=== PATIENT | female | born 1995 | race Caucasian/White ===

== ENCOUNTER → 2017-06-20 | Outpatient (REF) | payer OTHER | LOC: M SFHCWAGY 10:31 | PROVIDERS: ATTEND Nurse Practitioner Women's Health | DX: Z12.4 Encounter for screening for malignant neoplasm of cervix (principal) ==

== ENCOUNTER → 2018-07-15 | Outpatient (REF) | payer OTHER ==
[2018-07-15 20:03] LABS: HEMATOCRIT 44.5 % (36.0-47.0); HEMOGLOBIN 14.1 g/dl (12.0-15.5); MEAN CORPUSCULAR HEMOGLOBIN 28.4 pg (27.0-33.0); MEAN CORPUSCULAR HGB CONC 31.7 g/dl (32.0-36.5); MEAN CORPUSCULAR VOLUME 89.7 fl (80.0-96.0); PLATELET COUNT, AUTOMATED 334 10^3/uL (150-450); RED BLOOD COUNT 4.96 10^6/uL (4.00-5.40); RED CELL DISTRIBUTION WIDTH 12.5 % (11.5-14.5); WHITE BLOOD COUNT 8.5 10^3/uL (4.0-10.0)
[2018-07-15 20:43] LABS: ALBUMIN/GLOBULIN RATIO 1.05 (1.00-1.93); ALKALINE PHOSPHATASE 69 U/L (45-117); ALT/SGPT 23 U/L (12-78); ANION GAP 9 MEQ/L (8-16); AST/SGOT 15 U/L (7-37); BILIRUBIN,TOTAL 0.2 MG/DL (0.2-1.0); BLOOD UREA NITROGEN 9 MG/DL (7-18); CALCIUM LEVEL 10.2 MG/DL (8.5-10.1); CARBON DIOXIDE LEVEL 26 MEQ/L (21-32); CHLORIDE LEVEL 106 MEQ/L (98-107); CREATININE FOR GFR 0.78 MG/DL (0.55-1.30); FREE T4 1.08 NG/DL (0.76-1.46); GLOMERULAR FILTRATION RATE > 60.0 (>60); GLUCOSE, FASTING 87 MG/DL (70-100); POTASSIUM SERUM 4.5 MEQ/L (3.5-5.1); SODIUM LEVEL 141 MEQ/L (136-145); TOTAL PROTEIN 7.8 GM/DL (6.4-8.2)
== END ==
LOC: M SFHCADAM 14:51
DX: R00.2 Palpitations (principal)

== ENCOUNTER → 2020-02-08 | Outpatient (REF) | payer OTHER ==
[2020-02-08 13:41] LABS: FREE T4 1.02 NG/DL (0.76-1.46); THYROID STIMULATING HORMONE 2.02 uIU/ML (0.358-3.740)
[2020-02-08 13:42] LABS: ESTRADIOL 63.5 PG/ML; FOLLICLE STIMULATING HORMONE 3.1 mIU/mL; LUTEINIZING HORMONE 2.6 mIU/mL; PROLACTIN 10.1 NG/ML
== END ==
LOC: M PLALAB 11:07
PROVIDERS: ATTEND Nurse Practitioner Women's Health
DX: Z31.9 Encounter for procreative management, unspecified (principal)

== ENCOUNTER → 2020-02-08 | Outpatient (CLI) | payer OTHER ==
--- NOTE | 2020-02-08 13:22 | REP ---
PELVIC ULTRASOUND: Transabdominal pelvic ultrasound performed. Bladder measures 10.5 x 6.1 cm. Uterus measures 9.5 x 4.3 x 5.5 cm. Endometrial thickness is 16 mm. There is no endometrial fluid collection. Right ovary measures 4.9 x 2.6 x 2.8 cm and left ovary 3.3 x 1.8 x 2.7 cm. There is a cystic structure with low level echoes in the right ovary compatible with a dominant follicle 2.4 x 1.8 x 1.5 cm. Small paraovarian cystic structure is seen on the left measuring 1.6 x 1.2 x 1.0 cm. There is blood flow seen in each ovary with duplex Doppler evaluation, with no torsion. Trace physiologic amount of free fluid is seen in the cul-de-sac. IMPRESSION: Endometrial thickness of 16 mm is likely due to the patient's phase of menstruation. Dominant follicle right ovary 2.4 cm in maximum diameter. Small paraovarian cystic structure on the left measures 1.6 cm maximally.
== END ==
LOC: M WHC 09:49
PROVIDERS: ATTEND Nurse Practitioner Women's Health
DX: Z31.9 Encounter for procreative management, unspecified (principal)

== ENCOUNTER → 2020-04-04 | Outpatient (REF) | payer OTHER | LOC: M LAB REF 12:39 | PROVIDERS: ATTEND Physician Assistant | DX: N39.0 Urinary tract infection, site not specified (principal) ==

== ENCOUNTER → 2020-04-27 | Outpatient (CLI) | payer OTHER ==
--- NOTE | 2020-04-27 16:52 | REP ---
History: Infertility The procedure was performed by ROBERTO Hernandez, under the direct supervision of Dr. Lopez. The images were reviewed with Dr. Lopez. The patient was referred for a hysterosalpingogram. The referring clinician catheterize the cervix and injected contrast while I obtained fluoroscopic images. The uterine cavity opacifies well and appears normal in configuration with no definite contour abnormalities or filling defect. There is free passage of contrast material through both non dilated fallopian tubes, and there appears to be free intraperitoneal spillage bilaterally. Impression: 1. Bilateral fallopian tubes appear patent. 0.3 minutes of fluoroscopy time was utilized for this procedure. Some fluoroscopic images are performed with last image hold technology. These images require no additional radiation. Reviewed by ROBERTO Bonilla 04/27/2020 04:28 P Electronically Signed by Shaheed Lopez MD 04/27/2020 04:43 P
== END ==
LOC: M RADPRO 12:00
PROVIDERS: ATTEND Obstetrics & Gynecology
DX: N97.9 Female infertility, unspecified (principal)

== ENCOUNTER → 2020-09-21 | Outpatient (REF) | payer OTHER | LOC: M SFHCWAGY 17:28 | PROVIDERS: ATTEND Obstetrics & Gynecology | DX: Z12.4 Encounter for screening for malignant neoplasm of cervix (principal) ==

== ENCOUNTER → 2021-07-28 | Outpatient (CLI) | payer OTHER ==
[2021-07-28 11:00] LABS: PROGESTERONE 27.9 NG/ML
== END ==
LOC: M LAB 06:32
PROVIDERS: ATTEND Obstetrics & Gynecology Reproductive Endocrinology
DX: Z31.49 Encounter for other procreative investigation and testing (principal)

== ENCOUNTER → 2021-09-20 | Outpatient (CLI) | payer BC ==
[2021-09-20 08:38] LABS: ESTRADIOL 818.2 PG/ML; PROGESTERONE 33.01 NG/ML
== END ==
LOC: M LAB 06:40
PROVIDERS: ATTEND Obstetrics & Gynecology Reproductive Endocrinology
DX: Z31.49 Encounter for other procreative investigation and testing (principal)

== ENCOUNTER → 2021-09-26 | Outpatient (REF) | payer BC | LOC: M SFHCWAGY 17:18 | PROVIDERS: ATTEND Obstetrics & Gynecology | DX: Z12.4 Encounter for screening for malignant neoplasm of cervix (principal) ==

== ENCOUNTER → 2021-12-13 | Outpatient (CLI) | payer BC ==
[2021-12-13 08:13] LABS: HCG, SERUM QUANTITATIVE < 1.0 MIU/ML
[2021-12-13 10:00] LABS: PROGESTERONE 40.99 NG/ML
== END ==
LOC: M LAB 07:12
PROVIDERS: ATTEND Obstetrics & Gynecology Reproductive Endocrinology
DX: Z32.00 Encounter for pregnancy test, result unknown (principal)

== ENCOUNTER → 2022-01-08 | Outpatient (CLI) | payer BC ==
[2022-01-08 08:17] LABS: ESTRADIOL 83.2 PG/ML; PROGESTERONE 45.71 NG/ML
== END ==
LOC: M LAB 06:39
PROVIDERS: ATTEND Obstetrics & Gynecology Reproductive Endocrinology
DX: Z31.41 Encounter for fertility testing (principal)

== ENCOUNTER → 2022-01-12 | Outpatient (CLI) | payer BC ==
[2022-01-12 10:25] LABS: PROGESTERONE 32.87 NG/ML
== END ==
LOC: M LAB 06:22
PROVIDERS: ATTEND Obstetrics & Gynecology Reproductive Endocrinology
DX: Z32.00 Encounter for pregnancy test, result unknown (principal)

== ENCOUNTER → 2022-01-15 | Outpatient (CLI) | payer BC ==
[2022-01-15 07:16] LABS: THYROID STIMULATING HORMONE 3.14 uIU/ML (0.358-3.740)
[2022-01-15 10:32] LABS: PROGESTERONE 36.98 NG/ML
[2022-01-15 10:33] LABS: ESTRADIOL 1046.6 PG/ML
== END ==
LOC: M LAB 06:07
PROVIDERS: ATTEND Obstetrics & Gynecology Reproductive Endocrinology
DX: Z32.01 Encounter for pregnancy test, result positive (principal)

== ENCOUNTER → 2022-03-08 | Outpatient (CLI) | payer BC ==
[2022-03-08 10:47] LABS: HEMATOCRIT 42.5 % (36.0-47.0); HEMOGLOBIN 14.2 g/dl (12.0-15.5); MEAN CORPUSCULAR HEMOGLOBIN 29.6 pg (27.0-33.0); MEAN CORPUSCULAR HGB CONC 33.4 g/dl (32.0-36.5); MEAN CORPUSCULAR VOLUME 88.7 fl (80.0-96.0); PLATELET COUNT, AUTOMATED 330 10^3/uL (150-450); RED BLOOD COUNT 4.79 10^6/uL (4.00-5.40)
[2022-03-08 12:32] LABS: GC DNA AMPLIFICATION NEGATIVE (NEGATIVE)
[2022-03-08 14:15] LABS: HEPATITIS B SURFACE ANTIGEN NEGATIVE (NEGATIVE); HEPATITIS C VIRUS ABY INDEX 0.1 INDEX (<0.8); HIV 1&2 SCREEN CENTAUR NEGATIVE (NEGATIVE)
== END ==
LOC: M PLALAB 08:21
PROVIDERS: ATTEND Obstetrics & Gynecology
DX: O09.811 Supervision of pregnancy resulting from assisted reproductive technology, first trimester (principal); Z3A.00 Weeks of gestation of pregnancy not specified

== ENCOUNTER → 2022-04-10 | Outpatient (CLI) | payer BC | LOC: M WHC 07:42 | PROVIDERS: ATTEND Advanced Practice Midwife | DX: Z34.02 Encounter for supervision of normal first pregnancy, second trimester (principal); Z3A.00 Weeks of gestation of pregnancy not specified ==

== ENCOUNTER → 2022-05-04 | Outpatient (CLI) | payer BC | LOC: M WHC 06:33 | PROVIDERS: ATTEND Advanced Practice Midwife | DX: Z34.02 Encounter for supervision of normal first pregnancy, second trimester (principal); Z3A.20 20 weeks gestation of pregnancy ==

== ENCOUNTER → 2022-05-24 | Outpatient (REF) | payer BC | LOC: M LAB REF 12:26 | PROVIDERS: ATTEND Physician Assistant | DX: B34.9 Viral infection, unspecified (principal) ==

== ENCOUNTER → 2022-05-25 | Outpatient (REF) | LOC: M EMP 09:53 | PROVIDERS: ATTEND Family Medicine | DX: Z11.52 Encounter for screening for COVID-19 (principal); Z20.822 Contact with and (suspected) exposure to COVID-19 ==

== ENCOUNTER → 2022-05-28 | Outpatient (CLI) | payer BC | LOC: M WHC 07:38 | PROVIDERS: ATTEND Advanced Practice Midwife | DX: Z36.2 Encounter for other antenatal screening follow-up (principal); Z3A.23 23 weeks gestation of pregnancy ==

== ENCOUNTER → 2022-06-27 | Outpatient (CLI) | payer BC ==
[2022-06-27 13:57] LABS: HEMOGLOBIN 13.9 g/dl (12.0-15.5); MEAN CORPUSCULAR HEMOGLOBIN 30.7 pg (27.0-33.0); MEAN CORPUSCULAR HGB CONC 33.1 g/dl (32.0-36.5); MEAN CORPUSCULAR VOLUME 92.7 fl (80.0-96.0); PLATELET COUNT, AUTOMATED 235 10^3/uL (150-450); RED BLOOD COUNT 4.53 10^6/uL (4.00-5.40); WHITE BLOOD COUNT 10.3 10^3/uL (4.0-10.0)
== END ==
LOC: M PLALAB 08:48
PROVIDERS: ATTEND Advanced Practice Midwife
DX: Z34.02 Encounter for supervision of normal first pregnancy, second trimester (principal)

== ENCOUNTER → 2022-08-21 | Outpatient (REF) | payer BC | LOC: M SFHCWAGY 13:18 | PROVIDERS: ATTEND Advanced Practice Midwife | DX: Z34.03 Encounter for supervision of normal first pregnancy, third trimester (principal) ==

== ENCOUNTER → 2022-09-03 | Outpatient (CLI) | payer BC ==
[~2022-09-03] MED LIST: NALT50TA4 PO; PRENTAB9 PO
== END ==
LOC: M WHC 10:09
PROVIDERS: ATTEND Advanced Practice Midwife
DX: O26.843 Uterine size-date discrepancy, third trimester (principal); Z3A.36 36 weeks gestation of pregnancy

== ENCOUNTER → 2023-01-18 | Outpatient (REF) | payer BC ==
[~2023-01-18] MED LIST changes: +COLA100C5 PO; +IBUP80TA PO; +PERCOCET PO
[2023-01-18 16:55] LABS: THYROID STIMULATING HORMONE 2.571 uIU/ML (0.55-4.78)
[2023-01-18 16:57] LABS: FREE T4 0.81 NG/DL (0.89-1.76)
== END ==
LOC: M SFHCADAM 11:43
PROVIDERS: ATTEND Physician Assistant
DX: Z87.42 Personal history of other diseases of the female genital tract (principal); R63.5 Abnormal weight gain; E55.9 Vitamin D deficiency, unspecified

== ENCOUNTER → 2023-05-17 | Outpatient (CLI) | payer BC ==
[2023-05-17 13:39] LABS: FREE T4 0.95 NG/DL (0.89-1.76)
[2023-05-17 13:47] LABS: THYROID STIMULATING HORMONE 2.327 uIU/ML (0.55-4.78)
== END ==
LOC: M LAB 12:40
PROVIDERS: ATTEND Physician Assistant
DX: R79.89 Other specified abnormal findings of blood chemistry (principal)

== ENCOUNTER → 2024-01-23 | Outpatient (CLI) | payer BC | LOC: M LAB 11:11 | PROVIDERS: ATTEND Obstetrics & Gynecology Reproductive Endocrinology | DX: Z31.41 Encounter for fertility testing (principal) ==

== ENCOUNTER → 2024-02-19 | Outpatient (CLI) | payer BC ==
[2024-02-19 07:42] LABS: ESTRADIOL 128.8 PG/ML
[2024-02-19 07:43] LABS: PROGESTERONE 22.79 NG/ML
== END ==
LOC: M LAB 06:30
PROVIDERS: ATTEND Obstetrics & Gynecology Reproductive Endocrinology
DX: Z31.49 Encounter for other procreative investigation and testing (principal)

== ENCOUNTER → 2024-02-24 | Outpatient (CLI) | payer BC ==
[2024-02-24 09:32] LABS: HCG, SERUM QUANTITATIVE 9.6 MIU/ML (<4.2)
[2024-02-24 09:35] LABS: PROGESTERONE 52.91 NG/ML
== END ==
LOC: M LAB 08:05
PROVIDERS: ATTEND Obstetrics & Gynecology Reproductive Endocrinology
DX: Z32.00 Encounter for pregnancy test, result unknown (principal)

== ENCOUNTER → 2024-02-26 | Outpatient (CLI) | payer BC ==
[2024-02-26 07:00] LABS: HCG, SERUM QUANTITATIVE 4.9 MIU/ML (<4.2)
[2024-02-26 07:03] LABS: THYROID STIMULATING HORMONE 2.586 uIU/ML (0.55-4.78)
[2024-02-26 07:04] LABS: PROGESTERONE 56.1 NG/ML
== END ==
LOC: M LAB 06:03
PROVIDERS: ATTEND Obstetrics & Gynecology Reproductive Endocrinology
DX: Z32.01 Encounter for pregnancy test, result positive (principal)

== ENCOUNTER → 2024-02-28 | Outpatient (CLI) | payer BC ==
[2024-02-28 07:36] LABS: HCG, SERUM QUANTITATIVE < 2.6 MIU/ML (<4.2)
[2024-02-28 07:40] LABS: ESTRADIOL 236.7 PG/ML; THYROID STIMULATING HORMONE 2.528 uIU/ML (0.55-4.78)
[2024-02-28 07:41] LABS: PROGESTERONE 11.03 NG/ML
== END ==
LOC: M LAB 06:06
PROVIDERS: ATTEND Obstetrics & Gynecology Reproductive Endocrinology
DX: O02.81 Inappropriate change in quantitative human chorionic gonadotropin (hCG) in early pregnancy (principal); Z3A.00 Weeks of gestation of pregnancy not specified

== ENCOUNTER → 2024-05-18 | Outpatient (CLI) | payer BC ==
[2024-05-18 08:03] LABS: ESTRADIOL 522.3 PG/ML
[2024-05-18 08:04] LABS: PROGESTERONE 37.56 NG/ML
== END ==
LOC: M LAB 06:06
PROVIDERS: ATTEND Obstetrics & Gynecology Reproductive Endocrinology
DX: Z31.49 Encounter for other procreative investigation and testing (principal)

== ENCOUNTER → 2024-05-22 | Outpatient (CLI) | payer BC ==
[2024-05-22 07:05] LABS: HCG, SERUM QUANTITATIVE 72.1 MIU/ML (<4.2)
[2024-05-22 07:10] LABS: PROGESTERONE 26.5 NG/ML
== END ==
LOC: M LAB 06:07
PROVIDERS: ATTEND Obstetrics & Gynecology Reproductive Endocrinology
DX: Z32.00 Encounter for pregnancy test, result unknown (principal)

== ENCOUNTER → 2024-05-25 | Outpatient (CLI) | payer BC ==
[2024-05-25 07:08] LABS: THYROID STIMULATING HORMONE 2.036 uIU/ML (0.55-4.78)
[2024-05-25 07:09] LABS: ESTRADIOL 876.2 PG/ML; PROGESTERONE 31.19 NG/ML
== END ==
LOC: M LAB 06:06
PROVIDERS: ATTEND Obstetrics & Gynecology Reproductive Endocrinology
DX: Z32.01 Encounter for pregnancy test, result positive (principal)

== ENCOUNTER → 2024-06-19 | Outpatient (REF) | payer BC | LOC: M LABDRWAD 12:18 | PROVIDERS: ATTEND Obstetrics & Gynecology Reproductive Endocrinology | DX: Z32.01 Encounter for pregnancy test, result positive (principal) ==

== ENCOUNTER → 2024-07-03 | Outpatient (CLI) | payer BC | LOC: M LAB 06:20 | PROVIDERS: ATTEND Obstetrics & Gynecology Reproductive Endocrinology | DX: O02.1 Missed abortion (principal); Z3A.00 Weeks of gestation of pregnancy not specified ==

== ENCOUNTER → 2024-07-06 | Outpatient (CLI) | payer BC ==
[2024-07-08 01:08] LABS: CARDIOLIPIN IGA ANTIBODY < 2.0 APL-U/mL (<20.0); CARDIOLIPIN IGG ANTIBODY < 2.0 GPL-U/mL (<20.0); CARDIOLIPIN IGM ANTIBODY 3.5 MPL-U/mL (<20.0)
== END ==
LOC: M LAB 06:22
PROVIDERS: ATTEND Obstetrics & Gynecology Reproductive Endocrinology
DX: N96 Recurrent pregnancy loss (principal)

== ENCOUNTER → 2024-07-10 | Outpatient (CLI) | payer BC | LOC: M LAB 06:00 | PROVIDERS: ATTEND Obstetrics & Gynecology Reproductive Endocrinology | DX: O02.1 Missed abortion (principal) ==

== ENCOUNTER → 2024-08-07 | Outpatient (CLI) | payer BC ==
[2024-08-07 07:28] LABS: ESTRADIOL 164.4 PG/ML; PROGESTERONE 46.93 NG/ML
== END ==
LOC: M LAB 06:13
PROVIDERS: ATTEND Obstetrics & Gynecology Reproductive Endocrinology
DX: Z31.49 Encounter for other procreative investigation and testing (principal)

== ENCOUNTER → 2024-08-13 | Outpatient (CLI) | payer BC ==
[2024-08-13 07:23] LABS: HCG, SERUM QUANTITATIVE 176.8 MIU/ML (<4.2)
[2024-08-13 07:28] LABS: PROGESTERONE 47.58 NG/ML
== END ==
LOC: M LAB 06:02
PROVIDERS: ATTEND Obstetrics & Gynecology Reproductive Endocrinology
DX: Z32.00 Encounter for pregnancy test, result unknown (principal)

== ENCOUNTER → 2024-08-17 | Outpatient (CLI) | payer BC ==
[2024-08-17 07:17] LABS: HCG, SERUM QUANTITATIVE 974.7 MIU/ML (<4.2)
[2024-08-17 07:22] LABS: ESTRADIOL 481.6 PG/ML; THYROID STIMULATING HORMONE 4.121 uIU/ML (0.55-4.78)
[2024-08-17 07:23] LABS: PROGESTERONE 37.88 NG/ML
== END ==
LOC: M LAB 06:11
PROVIDERS: ATTEND Obstetrics & Gynecology Reproductive Endocrinology
DX: Z32.01 Encounter for pregnancy test, result positive (principal); Z3A.00 Weeks of gestation of pregnancy not specified

== ENCOUNTER → 2024-10-10 | Outpatient (CLI) | payer BC ==
[2024-10-10 09:04] LABS: HEMATOCRIT 36.1 % (36.0-47.0); HEMOGLOBIN 11.7 g/dl (12.0-15.5); MEAN CORPUSCULAR HEMOGLOBIN 26.8 pg (27.0-33.0); MEAN CORPUSCULAR HGB CONC 32.4 g/dl (32.0-36.5); MEAN CORPUSCULAR VOLUME 82.8 fl (80.0-96.0); PLATELET COUNT, AUTOMATED 328 10^3/uL (150-450); RED BLOOD COUNT 4.36 10^6/uL (4.00-5.40); WHITE BLOOD COUNT 5.8 10^3/uL (4.0-10.0)
[2024-10-10 09:25] LABS: URIC ACID 3.8 MG/DL (3.1-7.8)
[2024-10-10 09:28] LABS: ALT/SGPT 10 U/L (7.0-40); AST/SGOT 9 U/L (<34); BILIRUBIN,TOTAL 0.2 MG/DL (0.3-1.2); CREATININE FOR GFR 0.55 MG/DL (0.55-1.30); GLOMERULAR FILTRATION RATE > 60.0 (>60)
[2024-10-10 09:28] LABS: CREATININE,RANDOM URINE 17.8 MG/DL
[2024-10-10 09:29] LABS: TOTAL PROTEIN,RANDOM URINE < 6.0 MG/DL (0.0-14.0)
[2024-10-10 09:32] LABS: LDH LACTATE DEHYDROGENASE 178 U/L (120-246)
[2024-10-10 10:01] LABS: HIV 1&2 SCREEN NEGATIVE (NEGATIVE)
[2024-10-10 10:09] LABS: HEPATITIS C VIRUS ABY INDEX < 0.02 INDEX (<0.8)
[2024-10-11 00:09] LABS: GC DNA AMPLIFICATION NEGATIVE (NEGATIVE)
== END ==
LOC: M LAB 08:20
PROVIDERS: ATTEND Advanced Practice Midwife
DX: Z34.91 Encounter for supervision of normal pregnancy, unspecified, first trimester (principal)

== ENCOUNTER → 2024-12-01 | Outpatient (CLI) | payer BC | LOC: M WHC 07:04 | PROVIDERS: ATTEND Advanced Practice Midwife | DX: Z34.82 Encounter for supervision of other normal pregnancy, second trimester (principal); Z3A.19 19 weeks gestation of pregnancy ==

== ENCOUNTER → 2025-01-15 | Outpatient (CLI) | payer BC ==
[2025-01-15 11:03] LABS: HEMATOCRIT 34.8 % (36.0-47.0); HEMOGLOBIN 10.7 g/dl (12.0-15.5); MEAN CORPUSCULAR HEMOGLOBIN 25.1 pg (27.0-33.0); MEAN CORPUSCULAR HGB CONC 30.7 g/dl (32.0-36.5); MEAN CORPUSCULAR VOLUME 81.7 fl (80.0-96.0); PLATELET COUNT, AUTOMATED 271 10^3/uL (150-450); RED BLOOD COUNT 4.26 10^6/uL (4.00-5.40); WHITE BLOOD COUNT 9.9 10^3/uL (4.0-10.0)
[2025-01-15 11:12] LABS: GLUCOSE CHALLENGE TEST 1 HOUR 103 MG/DL (LESS THAN 140)
[2025-01-15 11:41] LABS: HIV 1&2 SCREEN NEGATIVE (NEGATIVE)
[2025-01-15 11:45] LABS: Trichomonas vaginalis (AMP) NOT DETECTED (NEGATIVE)
[2025-01-15 11:49] LABS: HEPATITIS C VIRUS ABY INDEX 0.04 INDEX (<0.8)
[2025-01-15 12:08] LABS: GC DNA AMPLIFICATION NEGATIVE (NEGATIVE)
== END ==
LOC: M PLALAB 07:06
PROVIDERS: ATTEND Advanced Practice Midwife
DX: Z34.82 Encounter for supervision of other normal pregnancy, second trimester (principal)

== ENCOUNTER 2025-04-19 05:44 | Inpatient (IN) | payer BC ==
[2025-04-19] VITALS (8 sets, daily range): BP systolic 108–143; BP diastolic 61–89; O2SAT 95–99
[~2025-04-19] VITALS: Ht 157.5 cm; Wt 81.5 kg
[~2025-04-19 05:44] MED LIST changes: +ECOT81TA5 PO
[2025-04-19] MEDS: LACTATED RINGER'S 1000 ML IV STA (06:17)
[2025-04-19 06:43] LABS: PLATELET COUNT, AUTOMATED 226 10^3/uL (150-450)
[2025-04-19] MEDS ORDERED: PHENYLephrine 500MCG 5ML (100MCG/ML) SYRINGE As Ordered ONE (07:15)
[2025-04-19] MEDS ORDERED: OXYTOCIN 30UNITS IN 0.9% NaCl 500ML IV BAG As Ordered ONE (07:15)
[2025-04-19] MEDS ORDERED: MORPHINE PRES-FREE INJ 10 MG/10 ML VIAL As Ordered ONE (07:15)
[2025-04-19] MEDS: ceFAZolin SODIUM 2 GM in DEXTROSE 5% (D5W) ADV/MINI-BAG 50 ML IV ONE (07:19)
[2025-04-19] MEDS: LR 1,000 ML IV SCH ×2 (07:19→12:32)
[2025-04-19] MEDS: BICITRA 30 ML SOLN UDC PO ONE (07:19)
[2025-04-19 07:36] LABS: HEPATITIS C VIRUS ABY INDEX 0.11 INDEX (<0.8)
[2025-04-19] MEDS ORDERED: ONDANSETRON 4MG 2ML VIAL As Ordered ONE (07:53)
[2025-04-19] MEDS ORDERED: KETOROLAC 30 MG/ML 1 ML VIAL As Ordered ONE (08:17)
[2025-04-19] MEDS ORDERED: METHYLERGONOVINE MALEATE 0.2 MG/ML 1 ML VIAL IM PRN (09:05)
[2025-04-19] MEDS ORDERED: IBUP80TA PO (09:05)
[2025-04-19] MEDS ORDERED: SIMETHICONE 80MG CHEW TAB PO PRN (09:05)
[2025-04-19] MEDS ORDERED: ONDANSETRON 4MG 2ML VIAL IV PRN ×2 (09:05→09:10)
[2025-04-19] MEDS ORDERED: PERCOCET 5MG/325MG TAB PO PRN ×2 (09:05)
[2025-04-19] MEDS ORDERED: ANUSOL HC CREAM 30 GM TOP PRN (09:05)
[2025-04-19] MEDS ORDERED: MORPHINE 4 MG/ML 1 ML VIAL IV PRN (09:05)
[2025-04-19] MEDS: OXYTOCIN DRIP 30 UNITS in IV 1 EA IV SCH (09:09)
[2025-04-19] MEDS ORDERED: NALOXONE INJ 0.4MG/1ML VIAL IV PRN ×2 (09:10)
[2025-04-19] MEDS ORDERED: **NOTE PATIENT COMMENT** MISC XX SCH (09:10)
[2025-04-19] MEDS: DOCUSATE SODIUM 100 MG CAPSULE PO SCH (10:28)
[2025-04-19] MEDS: FERROUS SULFATE 325 MG TAB PO SCH (10:28)
[2025-04-19] MEDS: PRENATAL VITAMINS CHEWABLE TABLET PO SCH (10:29)
[2025-04-19] MEDS: SLF 3 ML SYR IV SCH (12:33)
[2025-04-19] MEDS: LR 500 ML IV ONE (14:05)
[2025-04-19] MEDS: KETOROLAC 30 MG/ML 1 ML VIAL IV SCH (15:09)
[2025-04-19 19:24] LABS: HIV 1&2 SCREEN NEGATIVE (NEGATIVE)
[2025-04-19] MEDS: diphenhydrAMINE 50 MG/ML VIAL IV PRN (23:09)
[2025-04-20] VITALS (12 sets, daily range): BP systolic 120–147; BP diastolic 65–85; TEMP 98.3–98.9; O2SAT 97–100
[2025-04-20 07:08] LABS: PLATELET COUNT, AUTOMATED 208 10^3/uL (150-450)
[2025-04-20] MEDS: RHOGAM 300MCG (1500IU) INJ IM SCH (07:16)
[2025-04-20] MEDS: ACETAMINOPHEN 500 MG TAB PO PRN (07:49)
[2025-04-20] MEDS: IBUPROFEN 800 MG TAB PO SCH (10:55)
[2025-04-20] MEDS: MEASLES,MUMPS,RUBELLA VACCINE INJ (MMR-II) SC.IMMUN ONE (17:46)
[2025-04-20] MEDS: FIORICET TAB PO PRN (20:33)
[2025-04-21 02:00] VITALS: BP 119/75; O2SAT 97
[2025-04-21 06:00] VITALS: BP 102/58; O2SAT 96
[2025-04-21 07:05] LABS: PLATELET COUNT, AUTOMATED 210 10^3/uL (150-450)
[2025-04-21 08:45] VITALS: O2SAT 100
[2025-04-21 10:00] VITALS: TEMP 97.5
[2025-04-21 10:16] VITALS: BP 130/75; O2SAT 100
[2025-04-21] MEDS ORDERED: FERR1TAB8 PO (11:25)
== END 2025-04-21 13:01 | disposition home or self-care (01) | DRG 540 ==
LOC: M LDI 05:44 → OBSVTOIN 05:44 → M OBS 10:15
PROVIDERS: ADMIT Obstetrics & Gynecology; ATTEND Obstetrics & Gynecology
PROC: 10D00Z1 Extraction of Products of Conception, Low, Open Approach (ICD-10-PCS; principal; 2025-04-19 07:30)
PROC: 30233N1 Transfusion of Nonautologous Red Blood Cells into Peripheral Vein, Percutaneous Approach (ICD-10-PCS; 2025-04-20)
PROC: 03U Upper Arteries, Supplement (ICD-10-PCS; 2025-04-20)
DX: O34.211 Maternal care for low transverse scar from previous cesarean delivery (principal); O99.355 Diseases of the nervous system complicating the puerperium; Z37.0 Single live birth; Z3A.39 39 weeks gestation of pregnancy; D64.9 Anemia, unspecified; O99.03 Anemia complicating the puerperium; G97.1 Other reaction to spinal and lumbar puncture

== ENCOUNTER → 2025-07-23 | Outpatient (CLI) | payer BC ==
[~2025-07-23] MED LIST changes: +FERR1TAB8 PO
[2025-07-23 13:56] LABS: BASO # 0.1 10^3/uL (0.0-0.2); BASO % 0.9 % (0.0-1.0); EOS # 0.2 10^3/uL (0.0-0.5); EOS % 2.4 % (0.0-3.0); LYMPH # 2.8 10^3/uL (1.5-5.0); LYMPH % 42.3 % (24.0-44.0); MONO # 0.4 10^3/uL (0.0-0.8); MONO % 5.5 % (2.0-8.0); NEUTROPHILS # 3.3 10^3/uL (1.5-8.5); NEUTROPHILS % 48.8 % (36.0-66.0); PLATELET COUNT, AUTOMATED 328 10^3/uL (150-450)
[2025-07-23 14:24] LABS: IRON (FE) 42.0 UG/DL (50-170)
[2025-07-23 14:25] LABS: PERCENT SATURATION 10.2 % (13.2-45.0)
[2025-07-23 14:27] LABS: FREE T4 1.07 NG/DL (0.89-1.76)
== END ==
LOC: M PLALAB 10:40
PROVIDERS: ATTEND Physician Assistant
DX: E61.1 Iron deficiency (principal); Z87.42 Personal history of other diseases of the female genital tract

== ENCOUNTER → 2025-09-14 | Outpatient (REF) | payer BC ==
[2025-09-16 18:27] LABS: HPV APTIMA Not Detected (Not Detected)
== END ==
LOC: M SFHCWAGY 14:12
PROVIDERS: ATTEND Advanced Practice Midwife
DX: Z12.4 Encounter for screening for malignant neoplasm of cervix (principal)
CPT/HCPCS: 87624; G0123